=== PATIENT | female | born 1970 | race Caucasian/White ===

== ENCOUNTER → 2017-02-01 | Outpatient (CLI) | payer OTHER ==
[2017-02-01 07:58] LABS: AUTOMATED NEUTROPHIL # 5.2 TH/MM3 (1.8-7.7); BASOPHIL # 0.1 TH/MM3 (0-0.2); BASOPHIL % 1.4 % (0.0-2.0); EOSINOPHIL # 0.2 TH/MM3 (0-0.4); EOSINOPHIL % 2.5 % (0.0-4.0); HEMATOCRIT 40.5 % (35.0-46.0); HEMO FLAGS DIFF FINAL; LYMPHOCYTE # 2.2 TH/MM3 (1.0-4.8); MEAN CELL VOLUME 83.5 FL (80.0-100.0); MEAN CORPUSCULAR HEMOGLOBIN 28.2 PG (27.0-34.0); MEAN CORPUSCULAR HGB CONC 33.8 % (32.0-36.0); MONO % 8.6 % (0.0-8.0); NEUT % 61.5 % (16.0-70.0); PLATELET COUNT 267 TH/MM3 (150-450); RED BLOOD COUNT 4.85 MIL/MM3 (4.00-5.30); RED CELL DISTRIBUTION WIDTH 13.4 % (11.6-17.2); WHITE BLOOD COUNT 8.5 TH/MM3 (4.0-11.0)
[2017-02-01 08:43] LABS: ALKALINE PHOSPHATASE 118 U/L (45-117); ALT (GPT) 35 U/L (10-53); ANION GAP 9 MEQ/L (5-15); AST (GOT) 19 U/L (15-37); BLOOD UREA NITROGEN 15 MG/DL (7-18); CHLORIDE 104 MEQ/L (98-107); GLOMERULAR FILTRATION RATE 63 ML/MIN (>89); GLUCOSE,FASTING 107 MG/DL (74-99); LDL CHOLESTEROL 65 MG/DL (0-99); POTASSIUM 3.4 MEQ/L (3.5-5.1); SODIUM (NA) 142 MEQ/L (136-145); TOTAL BILIRUBIN ADULT 0.3 MG/DL (0.2-1.0)
[2017-02-01 14:24] LABS: HEMOGLOBIN A1b 1.7 %; HEMOGLOBIN Ao 85.2 %; HEMOGLOBIN P3 5.1 %
== END ==
LOC: CLAB 07:21
PROVIDERS: ATTEND Family Medicine
DX: E03.8 Other specified hypothyroidism (principal); E78.2 Mixed hyperlipidemia; F33.42 Major depressive disorder, recurrent, in full remission; I10 Essential (primary) hypertension; R53.83 Other fatigue; Z13.89 Encounter for screening for other disorder
CPT/HCPCS: 36415; 80053; 80061; 82306; 82607; 83036; 84443; 85025

== ENCOUNTER → 2017-02-08 | Outpatient (CLI) | payer OTHER ==
[2017-02-08 11:42] LABS: GAMMA GT 27 U/L (5-55)
[2017-02-08 16:47] LABS: HEMOGLOBIN A1b 1.7 %; HEMOGLOBIN Ao 85.4 %; HEMOGLOBIN LA1C 1.9 %; HEMOGLOBIN P3 5.1 %
== END ==
LOC: CLAB 10:34
PROVIDERS: ATTEND Family Medicine
DX: R53.83 Other fatigue (principal); R73.09 Other abnormal glucose; R79.9 Abnormal finding of blood chemistry, unspecified
CPT/HCPCS: 36415; 82306; 82977; 83036; 83970; 84080